=== PATIENT | female | born 1995 | race Caucasian/White ===

== ENCOUNTER 2016-04-06 21:37 | Emergency (ER) | payer OTHER ==
[~2016-04-06] VITALS: Ht 149.9 cm; Wt 88.0 kg
[2016-04-06 21:44] VITALS: BP 120/79; PULSE 101; RESP 16; O2SAT 98
--- NOTE | 2016-04-06 23:52 | ED.REPORT ---
HPI-General Illness Date of Service Apr 06, 2016 ED Provider: Justin Fields Patient is a 20 year old female with a history of factor V related blood clots on 6mg of Warfarin who presents to the ED with complaining of a worsening headache. Her symptoms include depressed mood, dizziness, headache, memory problems, and intermittent chest pain. She reports "I'm kind of on pills right now" and presents with an Ativan RX bottle in her pocket. She denies a plan or desire to harm herself, SOB, or any other symptoms. She was admitted to [facility] on 04/02/16 and discharged today to [facility] in [place]. She went to crisis but left because they did not have enough resources and were unaware that she has a history of Factor V related blood clots. She reports that her last INR was 1.8 because she was off of Warfarin for a spinal tap. She had an MRI a few days ago that revealed her blood clots in her head are shrinking. Patient is requesting to go to [facility] for medical care. Nursing Notes Stated Complaint: CHEST PAIN/DIZZY Chief Complaint: Psychiatric Complaint Nursing Notes Reviewed: Yes Allergies: Coded Allergies: Sulfa (Sulfonamide Antibiotics) (Verified Allergy, Unknown, 04/07/16) acetaminophen (Verified Allergy, Unknown, 04/07/16) butalbital (Verified Allergy, Unknown, 04/07/16) caffeine (Verified Allergy, Unknown, 04/07/16) codeine (Verified Allergy, Unknown, 04/07/16) General Time Seen by MD: 23:51 Chief Complaint Headache Hx Obtained From: Patient Arrived By: Walk-in Recent Healthcare: Recent hospitalization Similar Sx Previous: Yes Past Medical History Past Medical History Factor V related blood clots Reports: Asthma Past Surgical History Eye surgery (nonspecific) Reports: Tonsillectomy Smoking History Unknown if Ever Smoker Social History Drug Use: THC Other Social History: Homeless Ambulatory Status Independent Review of Systems +Memory changes Full Review of Systems Respiratory: Denies: Shortness of breath Cardiovascular: Reports: Chest pain Neurologic: Reports: Dizziness, Headache Psychiatric: Reports: Depression, Denies: Suicidal ideation Complete sys rev & neg: except as marked. Physical Exam Vital Signs Vital Signs Date Time Temp Pulse Resp B/P Pulse Ox O2 Delivery O2 Flow Rate FiO2 04/06/16 21:44 37.1 101 16 120/79 98 Room Air Initial VS: Reviewed Head / Eyes: Atraumatic, Normocephalic Neck: Full range of motion Respiratory: No respiratory distress Cardiovascular: Regular rate & rhythm, Heart sounds normal Abdomen / GI: Soft, Non-tender Skin: Warm, Dry General/Constitutional: Awake, Alert, No acute distress, Well developed Neurologic: Oriented X3, Speech NL Psychiatric: Not suicidal, Not homicidal Interpretation & Diagnostics Lab Results Interpretation Result Diagram: 04/07/16 0120 04/07/16 0120 Test 04/07/16 01:20 04/07/16 01:31 White Blood Count 11.1th/mm3 (3.8-10.1) Red Blood Count 4.55mil/mm3 (3.90-5.20) Hemoglobin 12.7g/dL (12.0-15.6) Hematocrit 39.2% (35.0-46.0) Mean Corpuscular Volume 86.2fL (81-100) Mean Corpuscular Hemoglobin 27.9pg (27.0-35.0) Mean Corpuscular Hemoglobin Concent 32.4% (32.0-37.0) Red Cell Distribution Width 14.7% (12.3-15.4) Platelet Count 354bil/L (150-400) Neutrophils (%) (Auto) 61.6% (40-74) Lymphocytes (%) (Auto) 25.8% (14-46) Monocytes (%) (Auto) 10.6% (4-12) Eosinophils (%) (Auto) 0.8% (0-5) Basophils (%) (Auto) 0.5% (0-3) Prothrombin Time 12.4sec (8.1-12.5) Prothromb Time International Ratio 1.16ratio Sodium Level 143mEq/L (134-144) Potassium Level 3.7mEq/L (3.5-5.2) Chloride Level 111mEq/L (97-108) Carbon Dioxide Level 16mmol/L (18-29) Blood Urea Nitrogen 20mg/dL (6-20) Creatinine 0.76mg/dL (0.57-1.00) Estimat Glomerular Filtration Rate 136mL/min (>59) Glucose Level 99mg/dL (60-99) Calcium Level 9.1mg/dL (8.5-10.1) Magnesium Level 2.0mg/dL (1.6-2.6) Total Bilirubin 0.2mg/dL (0.0-1.2) Aspartate Amino Transf (AST/SGOT) 13U/L (0-50) Alanine Aminotransferase (ALT/SGPT) 24U/L (0-32) Alkaline Phosphatase 63U/L (25-150) Troponin T 0.010ug/L (0.0-0.011) Total Protein 6.5g/dL (6.4-8.4) Albumin 4.2g/dL (3.4-5.0) Hold Martin Top Tube Received (Received) Hold Urine Received (Received) ECG Interpretation ECG Interpretation: Sinus rate 69 Time: 01:32 Interpreted by: ED physician X-Ray Chest Interpretation Chest Xray Interpretation: No abnormalities View: Portable, 1 view Interpretation / Wet Read by: Interpret - ED physician CT Head Interpretation CT BRAIN IMPRESSION: normal exam. Normal dural venous sinuses. No acute intracranial abnormality. Devika Phillips M.D. Study: Head CT no contrast Interpretation / Wet Read by: Interpret - Radiologist Re-Eval/Medical Decision Med Decision/Clinical Course 20-year-old female presents on referral from crisis respite, having just arrived here today from [facility]. She has a background of a recent cerebral venous sinus thrombosis, presumably on the basis of factor V Leiden deficiency. She was begun on Coumadin and has been therapeutic according to her. She complains of a headache without other neuro symptoms. She complains of chest pain. She states that her psychiatric issues or not specifically an issue tonight and she is not suicidal. She wants to go to the [facility], where there was not a bed available. She wants instead to be transferred to [facility] emergency department. This was discussed with her is not immediately possible, since she does not qualify for inpatient admission. When advised that she would be discharged, she then alleged suicidality, having just denied it. She was discharged to the waiting room to arrange a ride. Time of Eval: 01:58 Patient Status: Mild relief Re-Evaluation/Progress Note: Patient refused additional dose of warfarin for low INR. Discussed lab and imaging results and plan for discharge. Patient understands and agrees with plan. All questions addressed at this time. Counseled Regarding: Diagnosis, Lab results, Need for follow-up, When/why to return to ED Discharge & Departure Shift Change Sign-Out Response to Therapy: Improved Primary Impression: Cerebral venous sinus thrombosis Additional Impressions: Depression Headache Disposition: Home Discharge Condition All VS Reviewed: Yes Condition: Improved Patient Instructions: Acute Headache (ED) Additional Instructions: Follow-up with your doctors as planned. Scribe Attestation Portions of this note were transcribed by Nikki Webb. I, Dr. Fields personally performed the history, physical exam and medical decision-making; I reviewed and confirmed the accuracy of the information in the transcribed note. Signed by: Nikki Webb 04/07/16, 0203 Ko Fields MD Apr 06, 2016 23:52 NIKKI WEBB Apr 07, 2016 00:10
[2016-04-07 01:30] LABS: BASOPHILS % (AUTO) 0.5 % (0-3); EOSINOPHILS % (AUTO) 0.8 % (0-5); MONOCYTES % (AUTO) 10.6 % (4-12); Mean Corpuscular Hemoglobin 27.9 pg (27.0-35.0); Mean Corpuscular Volume 86.2 fL (81-100); NEUTROPHILS % (AUTO) 61.6 % (40-74); Platelet Count 354 bil/L (150-400)
[2016-04-07 01:47] LABS: INR 1.16 ratio
[2016-04-07 01:57] LABS: TROPONIN T 0.01 ug/L (0.0-0.011)
--- NOTE | 2016-04-07 10:28 | DRSVH ---
PROCEDURE: X-RAY CHEST ONE VIEW, PORTABLE ([id number]) INDICATIONS: cp TECHNIQUE: One view of the chest was acquired. COMPARISON: None. FINDINGS: Surgical changes and devices: None. Lungs and pleura: No pleural effusions or pneumothorax. Lungs are clear. Mediastinum: Mediastinal contours appear normal. Heart size is normal. Bones and chest wall: No suspicious bony lesions. Overlying soft tissues appear unremarkable. IMPRESSION: No acute cardiopulmonary disease. Dictated by: Neil OKEEFE Interpreted: Johnathan Ervin MD on 04/07/2016 at 10:27 Transcribed by: STONE on 04/07/2016 at 10:27 Approved by: Ketan Ervin M.D. on 04/07/2016 at 16:21
--- NOTE | 2016-04-07 12:02 | DRSVH ---
PROCEDURE: CT BRAIN WITHOUT CONTRAST ([id number]) INDICATIONS: venous sinus thrombosis, increased calixto TECHNIQUE: Noncontrast 4.5 mm thick angled axial sections acquired from the foramen magnum to the vertex, with c oronal reformats. COMPARISON: None. FINDINGS: Image quality: Excellent. CSF spaces: Basal cisterns are patent. No extra-axial fluid collections. Ventricles are normal in size and shape. Brain: No midline shift. No intracranial masses or hemorrhage. Brandt-white matter interface is norm al. Skull and face: Calvarium and visualized facial bones are intact, without suspicious lesions. Sinuses: Visualized sinuses and mastoids are clear. Frontal sinuses are aplastic. IMPRESSION: 1. No acute intracranial process. No visualized cause of headache. Dictated by: Mckenzie Vernon M.D. on 04/07/2016 at 12:00 Approved by: Mckenzie Vernon M.D. on 04/07/2016 at 12:01
[2016-04-07] MEDS ORDERED: WARF3TAB7 PO (21:09)
== END 2016-04-07 03:38 | disposition home or self-care (01) ==
LOC: SED 21:37
DX: G08 Intracranial and intraspinal phlebitis and thrombophlebitis (principal); F32.9 Major depressive disorder, single episode, unspecified; D68.51 Activated protein C resistance; J45.909 Unspecified asthma, uncomplicated; Z79.01 Long term (current) use of anticoagulants; Z59.0 Homelessness; Z88.2 Allergy status to sulfonamides; Z88.6 Allergy status to analgesic agent; Z88.5 Allergy status to narcotic agent; Z88.8 Allergy status to other drugs, medicaments and biological substances

== ENCOUNTER 2016-04-07 03:35 | Emergency (ER) | payer OTHER ==
[~2016-04-07] VITALS: Ht 149.9 cm; Wt 88.2 kg
[2016-04-07 03:40] VITALS: BP 121/85; PULSE 83; RESP 16; O2SAT 97
--- NOTE | 2016-04-07 04:07 | ED.REPORT ---
HPI-General Illness Date of Service Apr 07, 2016 ED Provider: Donnie Justin Patient is a 20 year old female who was seen in the department just a few hours prior and was discharged after a full workup. Upon her first evaluation she made it clear that her goal is to get sent back to [place]. When she was discharged from [facility] yesterday morning, she was sent to Crisis respite in [facility] because [place] did not have beds available. She reports "I just want to get out of [facility]" and would like to stay in [place] instead. Upon re -arrival she alleged suicidal ideations and later admitted to lying so she could be admitted to get out of the dark and cold. She states, "If I can't get a ride out of here I will say I'm suicidal so I can stay". Nursing Notes Stated Complaint: PSYCHIATRIC COMPLAINT Chief Complaint: Psychiatric Complaint Nursing Notes Reviewed: Yes Allergies: Coded Allergies: Sulfa (Sulfonamide Antibiotics) (Verified Allergy, Unknown, 04/07/16) acetaminophen (Verified Allergy, Unknown, 04/07/16) butalbital (Verified Allergy, Unknown, 04/07/16) caffeine (Verified Allergy, Unknown, 04/07/16) codeine (Verified Allergy, Unknown, 04/07/16) General Time Seen by MD: 04:06 Chief Complaint Recheck Hx Obtained From: Patient Arrived By: Walk-in Recent Healthcare: Recent doctor visit, Recent hospitalization, Recent testing , Previous diagnosis, Prior workup Past Medical History Past Medical History Factor V related blood clots Reports: Asthma Past Surgical History Eye surgery (nonspecific) Reports: Tonsillectomy Smoking History Unknown if Ever Smoker Social History Drug Use: THC Other Social History: Homeless Ambulatory Status Independent Review of Systems Unable to Obtain ROS Uncooperative Physical Exam Vital Signs Vital Signs Date Time Temp Pulse Resp B/P Pulse Ox O2 Delivery O2 Flow Rate FiO2 04/07/16 03:40 36.6 83 16 121/85 97 Room Air General/Constitutional: Well-developed Head / Eyes: Atraumatic, Normocephalic Neck: Full range of motion Respiratory: No respiratory distress Skin: Warm, Dry Neurologic: Alert, Oriented, Nonfocal Psychiatric: Mood/affect normal, Behavior normal, Normal thought content Re-Eval/Medical Decision Med Decision/Clinical Course 20-year-old with background of depression and recent admission at [facility] in [place] for venous sinus thrombosis, presents after being sent from [facility], due to their discomfort with her medical issues. She complained of a headache, as well as chest pain. She was recently on Coumadin for venous sinus thrombosis. The felt he did not have enough medical information about her to care for her safely. She requested transport to [place] but the local ambulance crew understandably refused to provide that transport, and instead brought her here. She does not wish to be here. She is initially seeking a ride via ambulance then taxi to [place], but has no insurance to cover taxi ride, and does not qualify medically for an ambulance ride. Upon discovering that she would be discharged, she then alleged suicidality. She had just denied that previous. She acknowledges that she is saying that in order not to be discharged into the night. She wants to talk with social media content manager, and social media content manager will be available after 9:30 AM. She is placed in the psychiatric holding area with doors open, free to depart if she wishes, as she is clearly not suicidal and is here essentially for social purposes. While she does have legitimate psychiatric issues, she is not currently unstable or in need of commitment. Signed out at [address] Cerda. Discharge & Departure Shift Change Sign-Out Response to Therapy: Unchanged Primary Impression: Headache Additional Impressions: Cerebral venous sinus thrombosis Depression Anxiety Acute situational disturbance Discharge Condition All VS Reviewed: Yes Condition: Stable Referrals: DUSTIN VARGAS (PCP) Care Transferred to: Dr. Cerda Care Transferred at: 06:00 copies to: [facility] Christopher W MD Apr 07, 2016 04:07 NIKKI WEBB Apr 07, 2016 04:42
[2016-04-07 12:12] VITALS: BP 88/61; PULSE 70; RESP 16; O2SAT 100
[2016-04-07 15:34] VITALS: BP 124/82; PULSE 86; RESP 20; O2SAT 96
[2016-04-07] MEDS ORDERED: WARF3TAB7 PO (21:09)
[2016-04-07 21:48] VITALS: BP 114/79; PULSE 84; RESP 16; O2SAT 97
[2016-04-07] MEDS ORDERED: Pantoprazole 40 mg ER24 Tablet PO ONE (22:05)
[2016-04-07] MEDS ORDERED: lamoTRIgine 25 mg Tablet PO ONE (22:05)
[2016-04-07] MEDS ORDERED: hydrOXYzine Pamoate 25 mg Capsule PO ONE (22:05)
[2016-04-07] MEDS ORDERED: acetaZOLAMIDE 250 mg Tablet PO ONE (22:15)
[2016-04-07] MEDS ORDERED: Fluticasone 100 mCg Inhaler INHALATION ONE (22:25)
[2016-04-07] MEDS ORDERED: LORazepam 1 mg Tablet PO ONE (23:55)
[2016-04-08 06:26] VITALS: BP 104/80; PULSE 75; RESP 14; O2SAT 98
== END 2016-04-08 10:35 | disposition other institution (70) ==
LOC: SED 03:35
DX: G08 Intracranial and intraspinal phlebitis and thrombophlebitis (principal); F32.9 Major depressive disorder, single episode, unspecified; F41.9 Anxiety disorder, unspecified; F43.0 Acute stress reaction; D68.51 Activated protein C resistance; J45.909 Unspecified asthma, uncomplicated; Z59.0 Homelessness; Z87.442 Personal history of urinary calculi; Z79.01 Long term (current) use of anticoagulants; Z88.2 Allergy status to sulfonamides; Z88.6 Allergy status to analgesic agent; Z88.5 Allergy status to narcotic agent; Z88.8 Allergy status to other drugs, medicaments and biological substances
CPT/HCPCS: 81025; 82075; 99281; Q0177

== ENCOUNTER 2016-08-05 19:19 | Emergency (ER) | payer OTHER ==
[~2016-08-05] VITALS: Ht 149.9 cm; Wt 89.0 kg
[~2016-08-05 19:19] MED LIST: WARF3TAB7 PO
[2016-08-05 19:23] VITALS: BP 136/82; PULSE 62; RESP 16; O2SAT 99
[2016-08-05] MEDS ORDERED: BUSP5TAB3 PO (19:42)
[2016-08-05] MEDS ORDERED: LORA1TAB PO (19:42)
[2016-08-05] MEDS ORDERED: HYDR-4003 PO (19:42)
[2016-08-05] MEDS ORDERED: MONT10TA20 PO (19:42)
[2016-08-05] MEDS ORDERED: PANT40TA2 PO (19:42)
[2016-08-05] MEDS ORDERED: BECL8.7A6 INHALATION (19:42)
[2016-08-05] MEDS ORDERED: ACET500C PO (19:42)
[2016-08-05] MEDS ORDERED: TOPI50TA88 PO (19:42)
[2016-08-05] MEDS ORDERED: ALBU18HF INH (19:42)
[2016-08-05] MEDS ORDERED: WARF3TAB7 PO (19:42)
--- NOTE | 2016-08-05 19:44 | ED.REPORT ---
HPI-Psychiatric Illness Date of Service Aug 05, 2016 ED Provider: Placido Bray MD The patient is a 21 year old homeless female with a history of depression, anxiety, polysubstance abuse, personality disorder, and a remote history of venous sinus thrombosis resulting in increased intracranial pressure for which she is chronically treated with warfarin and Diamox. She presents to the ED with intermittent chronic suicidal ideation, worsening one week ago. She cannot name any stressors that have made this any worse though she does say there has been some, though mild, relationship stress. The patient has plans to buy a gun and shoot herself, but does not currently have access to one. She also reports headache currently. The patient recently quit using alcohol, benzodiazepines, and opiates two weeks ago. She denies fever, nausea, vomiting, cough, homicidal ideation, hallucinations, or other symptoms. The patient reports speaking with [facility] just prior to arrival, where there are "beds available". Nursing Notes Stated Complaint: MEDICAL CLEARANCE FOR FAIRFAX Chief Complaint: Psychiatric Complaint Nursing Notes Reviewed: Yes Allergies: Coded Allergies: Sulfa (Sulfonamide Antibiotics) (Verified Allergy, Unknown, 08/05/16) acetaminophen (Verified Allergy, Unknown, 04/07/16) butalbital (Verified Allergy, Unknown, 04/07/16) caffeine (Verified Allergy, Unknown, 04/07/16) codeine (Verified Allergy, Unknown, 04/07/16) Scheduled Acetazolamide (Acetazolamide) 500 Mg Capsule.er 500 MG PO QID Beclomethasone Dipropionate (Qvar) 8.7 Gm Aer.w.adap 1 PUFF INHALATION BID Buspirone (Buspirone) 5 Mg Tablet 5 MG PO BID Montelukast (Singulair) 10 Mg Tablet 10 MG PO AM Pantoprazole DR (Protonix) 40 Mg Tablet 40 MG PO DAILY Topiramate (Topiramate) 50 Mg Tablet 50 MG PO BID Warfarin Sodium (Warfarin Sodium) 3 Mg Tablet 3 MG PO DAILY Warfarin Sodium (Warfarin Sodium) 3 Mg Tablet 3 MG PO DAILY Scheduled PRN Albuterol Sulfate (Ventolin HFA Inhaler) 200 Puff/18 Gm Inhaler 2 PUFF INH Q6 PRN PRN For Wheezing Hydrocodone-Acetaminophen 5-325 mg (Hydrocodone-Acetaminophen 5-325 mg) 1 Each Tablet 1-2 TABLET PO Q4H PRN PRN For Pain Lorazepam (Lorazepam) 1 Mg Tablet 1 MG PO TID PRN PRN For Anxiety General Time Seen by MD: 19:42 Chief Complaint Suicidal ideation Hx Obtained From: Patient Arrived By: Walk-in Onset Occurred: More than a week ago... (Intermittent chronic, worsening one week ago) Symptom Duration: Intermittent Location: : Head Quality: Aching, Painful Severity: Current: Moderate Severity: Maximum: Moderate Pertinent Negative: Relieved by nothing Related History: Reports: Alcohol abuse, Depression Immunizations: Unknown Recent Healthcare: No recent doctor visit Similar Sx Previous: Yes Risk-Psychiatric Illness Suicide Risk Stratification Suicide Risk Factors - Adult: : Prior psych admissionNo: Access to firearms RF Statements: Risk factors reviewed Past Medical History Past Medical History Notes: Medications as of 08/05/16: Diamox 750mg 4x daily Protonix 40mg AM BuSpar 5mg AM Warfarin 3mg w/dinner Albuterol inhaler Lorazepam 1mg 8hrs PRN Albuterol nebulizer PRN Tramadol 50mg 8hrs PRN Montelukast 10 mg AM Past Medical History Factor V related blood clots Venous sinus thrombosis, stable on warfarin. 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 Physical Exam Initial Vital Signs Vital Signs (First) Date Time Temp Pulse Resp B/P Pulse Ox O2 Delivery O2 Flow Rate FiO2 08/05/16 19:23 36.2 62 16 136/82 99 Room Air Initial VS: Reviewed Head / Eyes: Atraumatic, Normocephalic ENT: Conjunctiva normal, No scleral icterus Neck: Supple, Full range of motion Respiratory: No respiratory distress General/Constitutional: Awake, Alert Neurologic: Oriented X3, Speech NL Psychiatric: Not homicidal, No hallucinations Abnormal Thinking / Perception: Positive: Suicidal, with plan (To buy and use a gun, patient has no current access to gun) Skin: Atraumatic, Color NL Interpretation & Diagnostics URINE : Negative Breathalyzer: 0 URINE DRUG SCREEN: + Marijuana Otherwise Negative Lab Results Interpretation Result Diagram: 08/05/16201108/05/162011 Test 08/05/16 19:57 08/05/16 20:12 Hold Urine Received (Received) White Blood Count 11.0th/mm3 (3.8-10.1) Red Blood Count 4.50mil/mm3 (3.90-5.20) Hemoglobin 12.6g/dL (12.0-15.6) Hematocrit 40.5% (35.0-46.0) Mean Corpuscular Volume 90.0fL (81-100) Mean Corpuscular Hemoglobin 28.0pg (27.0-35.0) Mean Corpuscular Hemoglobin Concent 31.1% (32.0-37.0) Red Cell Distribution Width 14.7% (12.3-15.4) Platelet Count 372bil/L (150-400) Neutrophils (%) (Auto) 61.5% (40-74) Lymphocytes (%) (Auto) 25.7% (14-46) Monocytes (%) (Auto) 11.0% (4-12) Eosinophils (%) (Auto) 0.6% (0-5) Basophils (%) (Auto) 0.3% (0-3) Prothrombin Time 21.3sec (8.1-12.5) Prothromb Time International Ratio 1.96ratio Sodium Level 140mEq/L (134-144) Potassium Level 3.3mEq/L (3.5-5.2) Chloride Level 110mEq/L (97-108) Carbon Dioxide Level 17mmol/L (18-29) Blood Urea Nitrogen 10mg/dL (6-20) Creatinine 0.66mg/dL (0.57-1.00) Estimat Glomerular Filtration Rate 159mL/min (>59) Glucose Level 92mg/dL (60-99) Calcium Level 9.5mg/dL (8.5-10.1) Total Bilirubin 0.3mg/dL (0.0-1.2) Aspartate Amino Transf (AST/SGOT) 16U/L (0-50) Alanine Aminotransferase (ALT/SGPT) 23U/L (0-32) Alkaline Phosphatase 61U/L (25-150) Total Protein 6.7g/dL (6.4-8.4) Albumin 4.4g/dL (3.4-5.0) Thyroid Stimulating Hormone (TSH) 2.390uIU/mL (0.450-4.500) Hold Martin Top Tube Received (Received) Re-Eval/Medical Decision Med Decision/Clinical Course MENTAL HEALTH ASSESSMENT: Patient currently endorses suicidal ideation with a vague plan of self- inflicted gunshot wound. She has no current access to firearms. She does have an extensive polysubstance abuse history but has been clean, by her report, for the past 2 weeks. This is corroborated by a negative drug screen today other than marijuana. Her alcohol level is 0 as well. Case management is contacted regarding her in [facility]. This is done by addiction social worker, see her notes, they recommended inpatient hospital care. He is homeless and has no social supports currently. Her chronic medical conditions, specifically venous sinus thrombosis, should not complicate her mental health disposition as this is currently and chronically cared for on an outpatient basis and there is no suspected deterioration of this condition currently. Her behaviors since arrival have only been calm and cooperative. Source of Hx: Old records Re-Evaluation/Progress #1: Time of Eval: 21:13 Patient Status: Condition improved Re-Evaluation/Progress Note: Discussed with patient lab results, diagnosis, and plan for [place] consult. Re-Evaluation/Progress #2: Time of Eval: 23:57 Patient Status: Condition improved Re-Evaluation/Progress Note: Discussed with patient [place] consult with plan for transfer of care to Dr. De La Rosa at change of shift. She agrees with plan for care and all questions were addressed. Re-Evaluation/Progress #3: Time of Eval: 23:59 Re-Evaluation/Progress Note: I informed the patient that we are waiting a decision from [facility]. Even if it except her they would not accept her until about noon tomorrow. Consultation #1: Consulted With: hoist worker Call Returned at: 20:02 Associate Professor Of Biostatistics: Will see patient, Agrees with eval, Agrees with plan Note: There are beds at [facility] but no bed on hold for patient. Patient requires medical evaluation to reserve a bed. Consultation #2: Consulted With: hoist worker Call Returned at: 21:05 Associate Professor Of Biostatistics: Agrees with eval, Agrees with plan Note: Discussed patient's case. See Social Work note. Consultation #3: Call Returned at: 21:37 Note: FAIRFAX: Patient needs medical and psychiatric evaluation to reserve a bed. There are beds available. Counseled Regarding: Diagnosis, Lab results Discharge & Departure Shift Change Sign-Out Patient Care Transferred: Yes (Dr. De La Rosa) Discussed Complaint(s): Yes Laboratory Evaluation: Lab evaluation discussed Response to Therapy: Improved Impression: Primary Impression: Depression Additional Impression: Suicidal ideation Referrals: DUSTIN VARGAS (PCP) Care Transferred to: Dr. De La Rosa Care Transferred at: 00:00 Scribe Attestation Portions of this note were transcribed by Laure Miller. I, Dr. Bray, personally performed the history, physical exam, and medical decision-making; I reviewed and confirmed the accuracy of the information in the transcribed note. Signed by: Erin Padgett, 08/05/2016, 23:59 copies to: [facility] DUSTIN KOGN Kirk H MD Aug 05, 2016 19:44 LAURE MILLER Aug 05, 2016 19:58
[2016-08-05 20:37] LABS: BASOPHILS % (AUTO) 0.3 % (0-3); EOSINOPHILS % (AUTO) 0.6 % (0-5); NEUTROPHILS % (AUTO) 61.5 % (40-74); Platelet Count 372 bil/L (150-400)
[2016-08-05 21:31] LABS: INR 1.96 ratio
[2016-08-05] MEDS ORDERED: LidocaineVisc 2%:Antacid 1:1 10 mL Syringe PO ONE (21:45)
[2016-08-05] MEDS ORDERED: LORazepam 2 mg Tablet PO ONE (22:00)
[2016-08-05] MEDS ORDERED: acetaZOLAMIDE 250 mg Tablet PO ONE (23:40)
[2016-08-05] MEDS ORDERED: Albuterol HFA 60 Puff 8 Gm Inhaler INHALATION PRN (23:55)
[2016-08-05] MEDS ORDERED: Pantoprazole 40 mg ER24 Tablet PO ONE (23:55)
[2016-08-05] MEDS ORDERED: LORazepam 1 mg Tablet PO PRN (23:55)
[2016-08-06] VITALS: BP 106/71; PULSE 60; RESP 18; O2SAT 100
[2016-08-06 06:15] VITALS: BP 114/68; PULSE 79; RESP 16; O2SAT 99
[2016-08-06] MEDS: acetaZOLAMIDE 250 mg Tablet PO SCH ×4 (06:30→21:53)
[2016-08-06] MEDS ORDERED: BusPIRone 15 mg Dividose Tablet PO SCH (08:30)
[2016-08-06 16:07] VITALS: BP 99/47; PULSE 79; O2SAT 100
[2016-08-06 21:03] VITALS: BP 110/65; PULSE 83; RESP 16; O2SAT 98
[2016-08-06] MEDS ORDERED: LORA-303 PO (21:14)
[2016-08-06] MEDS ORDERED: MONT10TA23 PO (21:14)
[2016-08-06] MEDS ORDERED: ALBU8.5H2 INHALATION (21:14)
[2016-08-06] MEDS ORDERED: TRAM-14 PO (21:14)
[2016-08-06] MEDS ORDERED: BUSP15TA3 PO (21:14)
[2016-08-06] MEDS ORDERED: ACET500C PO (21:14)
[2016-08-06] MEDS ORDERED: WARF3TAB7 PO (21:26)
[2016-08-06] MEDS ORDERED: LORazepam 1 mg Tablet PO ONE (21:55)
[2016-08-06 21:56] VITALS: BP 112/70; PULSE 78; RESP 17; O2SAT 99
== END 2016-08-06 21:57 ==
LOC: SED 19:19
DX: R45.851 Suicidal ideations (principal); F32.9 Major depressive disorder, single episode, unspecified; R51 Headache; J45.909 Unspecified asthma, uncomplicated; F41.9 Anxiety disorder, unspecified; F17.200 Nicotine dependence, unspecified, uncomplicated; Z79.01 Long term (current) use of anticoagulants; Z59.0 Homelessness; Z88.2 Allergy status to sulfonamides; Z88.5 Allergy status to narcotic agent; Z88.8 Allergy status to other drugs, medicaments and biological substances